=== PATIENT | male | born 1990 | race Hispanic/Latino ===

== ENCOUNTER 2017-11-26 08:34 | Day surgery (SDC) | payer BC ==
[2017-11-26 08:58] VITALS: O2SAT 100
[2017-11-26] MEDS ORDERED: Rocuronium 10 mg/ml (5 ml) ONE (13:05)
[2017-11-26] MEDS ORDERED: Midazolam 2 MG/2 ML VIAL ONE (13:09)
[2017-11-26] MEDS ORDERED: Propofol 10 mg/ml Inj (20 ML) ONE (13:10)
[2017-11-26] MEDS ORDERED: ceFAZolin IV 1 gm in Dextrose 1 GM/50 ML BAG IVPB ONE (13:16)
[2017-11-26] MEDS ORDERED: Lidocaine 4% (Laryng-O-Jet) Kit MM ONE (13:21)
[2017-11-26] MEDS ORDERED: Bupivacaine 0.25% 20 ML INJ IJ ONE ×3 (14:56→16:59)
[2017-11-26] MEDS ORDERED: Neostigmine Methylsulfate 3mg/3ml Syringe IV ONE (15:59)
[2017-11-26] MEDS ORDERED: HYDROmorphone 0.5 mg/0.5 ml ISec IVP PRN (16:38)
--- NOTE | 2017-11-26 16:39 | PCM.SURG1 ---
Surgeon's Initial Post Op Note - Surgeon's Notes Surgeon: Dr. Swapna Matson, DPM Registered Radiographer: Dr's: David Freeman, PGY-3; Krunal Gomez, PGY-3; Rosario Bautista, PGY-3 Type of Anesthesia: General LMA Anesthesia Administered By: Dr. Naldo MD Pre-Operative Diagnosis: 1) Right Achilles Tendon rupture. 2) Right Anterior Talo-fibular Ligament rupture Operative Findings: See dictation: I: 8 mL of 0.25% marviane plain. M: Arthofex 4x3cm graft; Arthrex Internal Brace with 3.5mm anchor and swivel lock; 0-fiberwire; 2-0 vicryl, 4-0 vicryl, 4-0 moncryl Post-Operative Diagnosis: 1) Right Achilles Tendon rupture, partial. 2) Right Anterior Talo-fibular Ligament rupture, total. Operation Performed: 1) Right Achilles Tendon repair. 2) Right Anterior Talo- fibular Ligament repair with Internal brace augmentation Specimen/Specimens Removed: none Estimated Blood Loss: EBL {In ML}: 5 Blood Products Given: N/A Drains Used: No Drains Post-Op Condition: Good Date of Surgery/Procedure: 11/26/17 Time of Surgery/Procedure: 16:40
[2017-11-26] MEDS ORDERED: Oxycodone/Acetaminophen 5/325 mg Tab PO PRN ×2 (16:41)
[2017-11-26 18:36] VITALS: BP 121/56; PULSE 89; RESP 20; TEMP 97.7
--- NOTE | 2017-11-29 09:39 | OP ---
PROCEDURE DATE: 11/26/2017 PATIENT'S AGE: 27. PATIENT'S GENDER: Male. PRIMARY SURGEON: Swapna Matson DPM PRIMARY HOLE DIGGER OPERATOR: Nathalia Freeman DPM, PGY-3 SECONDARY ASSISTANTS: Holly Gomez DPM, PGY-3 and Denise Bautista DPM, PGY-3 ANESTHESIOLOGIST: Jasen Hitchcock MD ANESTHESIA TYPE: General LMA with regional popliteal block. PREOPERATIVE DIAGNOSES: 1. Right Achilles tendon rupture. 2. Right anterior talofibular ligament rupture. POSTOPERATIVE DIAGNOSES: 1. Right Achilles tendon rupture. 2. Right anterior talofibular ligament rupture. PROCEDURES PERFORMED: 1. Right Achilles tendon repair with application of Allograft. 2. Right anterior talofibular ligament repair with internal brace support. INDICATIONS: The patient is a 27-year-old male with the above-stated diagnoses. The patient has opted conservative management treatment options and is now in need of surgical interventions for the trauma-based diagnoses stated above. The patient signed the surgical consent after careful explanation of risks, benefits, complications and potential alternatives with both surgical procedures. No guarantees were either given or implied. All patient's questions were answered to his satisfaction. PREPARATION: The patient's n.p.o. status was confirmed prior to bringing the patient to the operating room. PREPARATION FOR PROCEDURE #1: The patient was brought into the operating room on a stretcher where general anesthesia initiated. The patient was then transferred to the operating room table and placed in a prone position where a well-padded pneumatic tourniquet was applied at the mid thigh level of the right lower leg which was set to 350 mmHg to be inflated once the procedure began. At this time, the patient's right lower extremity was then prepped and draped in the usual sterile manner. Foot and lower leg were exsanguinated. Tourniquet was inflated. The procedure began. PROCEDURE #1: Right Achilles tendon repair. Attention was then directed to the posterior aspect of the patient's right leg where a mildly palpable dell was noted along the middle course of the Achilles tendon, and approximately 6-cm linear longitudinal incision was made medial to the midline substance of the Achilles tendon using #15 blade. This incision was extended down to subcutaneous tissue layers with care being taken to identify, avoid and retract all vital neurovascular structures. All bleeders were cauterized and ligated as encountered and needed. Core and soft tissue structures were retracted medially and laterally along visualization of Achilles tendon paratenon. This paratenon was then incised down the middle longitudinal access along the focus incision and handled atraumatically and retracted medially and laterally, thus fully exposing the Achilles tendon. At this time, Achilles tendon rupture with noticing trauma was visualized at the level of 4 cm proximal to the Achilles tendon insertion. Surgical site was then flushed with copious amounts of sterile saline. Achilles tendon was evaluated and was found that 80% of the tendon body had been ruptured with minimal stranding noted. At this time, intraoperative decision was made to complete resection and resect hyperfrayed nonviable ends of adjacent tendon margins. Surgical site was then flushed with copious amounts of sterile saline. At this time, plantaris tendon was evaluated and was found to be intact. Intraoperative decision was made to incorporate plantaris tendon into Achilles tendon repair. At this time, using 0 FiberWire, a cracked out type stitch pattern was used to reapproximate tendon. Tendon was reapproximated with foot being in approximately 15 degrees of plantar flexion once reapproximation was completed. With 0 FiberWire suture, excess FiberWire was then resected and passed off from the operative field. At this time, a 3 x 4 Arthroflex graft was reconstituted and approximately a quarter of the graft was excised as it was redundant. The remaining three quarters were applied on the posterior surface of the Achilles tendon to be incorporated into repair. Mid plantar Allograft was placed at the reapproximation part of the tendon and was secured using 2-0 Vicryl in a simple suture type fashion along the parameter of graft along the tendon body. At this time with Achilles reapproximated, Allograft applied and plantaris incorporated into repair. Surgical site was then flushed with copious amounts of sterile saline. Paratenon was reapproximated using 3-0 Vicryl. Subcutaneous tissue was reapproximated using 4-0 Vicryl. Skin was reapproximated using 4-0 Monocryl in a running suture type fashion. Incision sites were then flushed with saline, allowed to adequately dry, dressed with 4 x 4 gauze and Tegaderm along course of the incision. Stockinette was then reapplied and Coban into place. Tourniquet was deflated at this point with a total of 78 minutes left. Stockinette maintained sterility around the lower extremity as the patient is to be repositioned for subsequent procedure. PREPARATION #2: With the tourniquet deflated, the patient was then flipped into a supine position. Surgical site was then re-draped. Foot was held in elevation and exsanguinated for three minutes. Tourniquet was then re-inflated. Stockinette was cut back and the subsequent procedure began. PROCEDURE #2: Right foot anterior talofibular ligament repair. Attention was then directed to the lateral ankle level where the course of the anterior talofibular ligament was marked. A curvilinear incision was then created overlying the anterior talofibular location at the level of the lateral gutter of the ankle. Using #15 blade, this incision was carried down through the subcutaneous tissue layers with care being taken to identify, avoid and retract all vital neurovascular structures. All bleeders were ligated and cauterized as needed encountered. The extensor retinaculum was visualized and was defined to facilitate incorporation into talofibular repair. Using #15 blade, the capsular structures were incised in a vertical type fashion overlying the roof of the sinus tarsi along with visualization into the lateral gutter. It was noted that at this time there had been a complete rupture of the anterior talofibular ligament, as well as fibers were retracted, gaps and frayed. Surgical site was then flushed with copious amounts of sterile saline. As there was too much gapping for direct primary reapproximation of ATFL ligament, a final decision was made to augment ligamentous repair with internal brace and incorporation of extensor retinaculum into repair. At this time, Arthrex internal brace kit was opened, and a 3.5-mm drill bit was introduced and drilled into the lateral talus shoulder superior to the sinus tarsi and into the anterior distal fibula on the course of the ATFL origin. Next, a 3.5-mm internal brace anchor was placed in the talus shoulder secured into position. The 2-0 FiberTape ends were then attached through the lateral capsule and extensor retinaculum to allow the internal brace to fit extracapsular. Lateral capsular structures were reapproximated using 2-0 Vicryl incorporating extensor retinaculum fibers. While the foot was held in an inward position, excess dorsiflexion modifiied as Achilles tendon repair had just been performed. With foot held in eversion, 3.5-mm Arthrex bioanchor along with the ends of the 2-0 FiberTape was incorporated into the distal fibula and secured in position. Repair was then stressed and found to be adequate. Surgical site was then flushed with copious amounts of sterile saline. Subcutaneous tissue layers were reapproximated using 4-0 Vicryl. Skin was reapproximated using 4-0 Monocryl in a running suture type fashion. Surgical site was then dressed with Steri-Strips, 4 x 4 gauze, extending throughout the ankle level and along the posterior course of the Achilles tendon with Tegaderm dressing still intact with the posterior leg. Surgical site was then dressed with Kerlix and Coban. The patient was placed in AO type posterior splint. Prior to the application of the dressing, the patient received a total of 10 mL of 0.5% Marcaine in a local block type fashion along the saphenous nerve. POSTOPERATIVE CONDITION: The patient was escorted to the recovery room with vital signs stable and neurovascular status intact to the right foot and ankle. The patient had no complaints or complication. The patient is to receive a postoperative popliteal block at this level at this time. The patient will follow up with Dr. Matson in her office on an outpatient basis. Nathalia Freeman DPM Swapna Matson DPM [facility]
== END 2017-11-26 19:04 | disposition home or self-care (01) ==
LOC: C.SDS 08:34
PROVIDERS: ATTEND Podiatrist Foot & Ankle Surgery
DX: S86.011A Strain of right Achilles tendon, initial encounter (principal)
CPT/HCPCS: 27650; J0690; J1885; J2250; J2405; J2704; J2710; J2765; J3010